=== PATIENT | male | born 1965 | race Asian ===

== ENCOUNTER 2020-05-17 08:56 | Outpatient (REF) | payer OTHER, SELFPAY ==
[2020-05-17 14:24] LABS: Urine Cytology See Pathology rpt
== END 2020-05-17 08:57 | disposition home or self-care (01) ==
LOC: CF 08:56
PROVIDERS: PCP Internal Medicine Endocrinology, Diabetes & Metabolism; Visit Provider Urology
DX: C67.9 Malignant neoplasm of bladder, unspecified (principal)
CPT/HCPCS: 52000; 81002; 88112; 99212

== ENCOUNTER → 2020-12-20 08:48 | Outpatient (BNVA) | payer OTHER, SELFPAY | PROVIDERS: PCP Internal Medicine Endocrinology, Diabetes & Metabolism; Visit Provider Urology | DX: C67.9 Malignant neoplasm of bladder, unspecified (principal) | CPT/HCPCS: 52000; 99212 ==

== ENCOUNTER 2021-12-19 08:54 | Outpatient (REF) | payer OTHER, SELFPAY ==
[2021-12-19 16:34] LABS: Urine Cytology See Pathology rpt
== END 2021-12-19 08:55 | disposition home or self-care (01) ==
LOC: HO.LAB 08:54
PROVIDERS: Visit Provider Urology
DX: C67.9 Malignant neoplasm of bladder, unspecified (principal)
CPT/HCPCS: 52000; 88112; 99212

== ENCOUNTER 2023-01-08 09:24 | Outpatient (AMB) | payer OTHER, SELFPAY ==
--- NOTE | 2023-01-08 09:28 | MHC.OFFVIS ---
Intake Intake Visit Reasons: Cysto Intake Note: Patient presents today for a CYSTOSCOPY Procedure: Meds: None Allergies to Antibiotic: clindamyacin Blood Thinner: None Urinalysis test clear for Cysto? yes Disposable Uro-G Cystoscope Cannula: Lot: [id number] Exp: 08/30/2024 Allergies clindamycin [CLINDAMYCIN] Adverse Reaction (Intermediate, Verified 12/18/21 15:19) NAUSEA & VOMITING Clindamycin HCl Allergy (Unknown, Uncoded 12/18/21 15:19) Unknown HPI HPI Comments History of Present Illness Details Arie is a very pleasant male. He is a patient of Dr Cavazos. He is seen for the following urologic conditions. 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 Recurrence Risk per EORTC Low Risk. Bladder cancer risk factors Organic Solvent exposure No smoking Yes hair dye exposure No use of pioglitazone No chronic cystitis No prior chemotherapy with cyclophosphamide No family history of bladder cancer No pelvic radiation No Prior Cystoscopy 07/03 - small slowly healing area on left base 10/03 - area healed - has mild median lobe 01/03 - NAD - median lobe growing 04/04 NAD - median lobe prominent 07/04 - small lesion 11/03 NAD 05/07 NAD. 05/08 NAD - 05/09 Small red area right lower wall, 01/07 NAD with TURP def, 12/09 NAD Prior Cytology 03/04 Cells consistent with malignancy - 07/03 - NAD, 12/03 - NAD, 12/04 - NAD 05/08 FISH NAD, 06/[address] scan with contrast 03/04 - NAD. Planned treatment surveillance protocol [facility] Medical History (Updated 12/19/21 @ 09:30 by Az Rascon MD) Bipolar disorder Weak urinary stream Benign prostatic hyperplasia without lower urinary tract symptoms Urinary bladder cancer Surgical History (Updated 12/18/21 @ 15:21 by TERRENCE Euceda) History of surgery Social History (Updated 12/18/21 @ 15:21 by TERRENCE Euceda) Patient Tobacco Use Status: Former Tobacco user Review of Systems Const Denies chills and Denies fever(s) Card Reports no additional complaints and Denies syncope Resp Denies cough GI Denies abdominal pain and Denies heartburn Reports as per HPI and Denies change in libido Neuro Denies syncope Psych Denies change in libido Endo Denies change in libido Physical Exam Const General: cooperative, healthy appearing, comfortable and no acute distress Orientation/consciousness: patient oriented x3 HEENT Face and sinus: Yes normal facial exam Mouth: moist mucous membranes Neck Neck: Yes normal visual inspection, Yes full ROM and Yes trachea midline Chest Chest palpation & inspection: normal inspection of the chest Resp Effort & Inspection: normal respiratory effort, able to speak in complete sentences and no respiratory distress GI Inspection: Yes normal to inspection Back/Spine/Pelvis Cervical Spine: normal cervical lordosis Thoracic/Lumbar Spine: thoracic and lumbar spine normal to inspection Skin General skin exam: no rashes or lesions noted Neuro General: patient oriented x3, gait normal, tone normal and moves all extremities Extrem General: Yes normal to inspection and Yes capillary refill normal Office Procedures Cystoscopy Consent Discussed risk and benefit or proposed procedure with the patient. Information consent for procedure given to the patient. Discussed technical aspects, risks, benefits and alternatives in full. Addressed all of the patient's questions and concerns regarding the procedure. The patient demonstrated knowledge and understanding. They wish to proceed with this procedure. Preparation The patient was prepped in the usual manner. A brim plater was present and in the room. Genitalia was prepped with betadine solution in a sterile manner. Lidocaine Jelly 2% was placed into the urethra and 16Fr flexible Olympus cystoscope was inserted into the meatus after adequate lubrication. Procedure Meatus circumcised Urethra anterior posterior urethra normal Prostatic Urethra prior TURP defect Bladder examination with retroflexion of cystoscope Bladder Orifices normal shape and position Bladder Capacity medium Trabeculations - Cellule Formation - Diverticulum Formation - Mucosal Erythema - Bladder Tumor - [id number] DISPOSABLE SCOPE URO-G FLEXIBLE SCOPE Procedure code (CPT) selection complete Office Meds lidocaine HCl 2 % mucosal jelly in applicator Performing Provider: Az Rascon MD Performing Location: [facility] [place] [facility] Administered by: Alejandrina Lizarraga RN on 01/08/23 09:37 Dose Route Admin Location Dispensed Lot Number Expiration Date [facility] Transistor Tester 10 mL intra-urethral 10 mL nitrofurantoin monohydrate/macrocrystals 100 mg capsule Performing Provider: Az Rascon MD Performing Location: [facility] [place] [facility] Administered by: Alejandrina Lizarraga RN on 01/08/23 09:37 Dose Route Admin Location Dispensed Lot Number Expiration Date NDC Transistor Tester 100 mg PO 1 cap naproxen 500 mg tablet Performing Provider: Az Rascon MD Performing Location: [facility] [place] [facility] Administered by: Alejandrina Lizarraga RN on 01/08/23 09:37 Dose Route Admin Location Dispensed Lot Number Expiration Date NDC Transistor Tester 500 mg PO 1 tab Results AMB Urinalysis, Automated UA Leukoctes 0 Genny/uL Last Edit by Radha Cunha Haydee on 01/08/23 09:34 UA Nitrite Negative Last Edit by Radha Cunha [facility] on 01/08/23 09:34 UA Urobilinogen 0.2 mg/dL Last Edit by Radha Cunha [facility] on 01/08/23 09:34 UA Protein 15 mg/dL Last Edit by Radha Cunha [facility] on 01/08/23 09:34 UA pH 7.0 Last Edit by Radha Cunha Haydee on 01/08/23 09:34 UA Blood 0 Javier/uL Last Edit by Radha Cunha [facility] on 01/08/23 09:34 UA Specific [place] 1.015 Last Edit by TERRENCE Nix on 01/08/23 09:34 UA Ketone Negative Last Edit by Radha Cunha [facility] on 01/08/23 09:34 UA Bilirubin 0 mg/dL Last Edit by Radha Cunha [facility] on 01/08/23 09:34 UA Glucose 0 mg/dL Last Edit by Radha Cunha [facility] on 01/08/23 09:34 Results Reviewed Results Reviewed: Laboratory Last Values Urine pH (Auto) 7.0 01/08/23 09:33 Specific [place] (Auto) 1.015 01/08/23 09:33 Urine Protein (Auto) 15 mg/dL 01/08/23 09:33 Glucose (UA)(Auto) 0 mg/dL 01/08/23 09:33 Urine Ketones (Auto) Negative 01/08/23 09:33 Urine Blood (Auto) 0 Javier/uL 01/08/23 09:33 Urine Nitrite (Auto) Negative 01/08/23 09:33 Urine Bilirubin (Auto) 0 mg/dL 01/08/23 09:33 Urine Urobilinogen (Auto) 0.2 mg/dL 01/08/23 09:33 Leukocyte Esterase (Auto) 0 Genny/uL 01/08/23 09:33 Assessment & Plan Assessment & Plan (1) Bladder cancer: Comment: 2016 TA low-grade, 2018 cystitis cystica with TUIP Code(s): C67.9 - Malignant neoplasm of bladder, unspecified Plan 2 year follow-up repeat cystoscopy Orders: Orders AMB Urinalysis Automated Today Z13.9 - Encounter for screening, unspecified AMB Cystoscopy Today C67.9 - Malignant neoplasm of bladder, unspecified Patient Instructions: Imaging studies, laboratory and physical exam results were discussed and reviewed in detail. No major barriers to patient understanding were identified. An opportunity to ask questions regarding the treatment plan was provided. All questions were answered. The patient expressed understanding and agreement with the above treatment plan. The patient is aware they should contact our office by phone for worsening of their current condition or the appearance of new urologic symptoms. Compliance is encouraged with any medications and followup testing that is ordered. It is a privilege to participate in the urologic care of your patient. If you have any questions or concerns regarding treatment for the above conditions, or other urologic issues, please do not hesitate to contact me. The office telephone contact is [phone]. This note is constructed using voice recognition software. While every effort has been made to ensure accuracy pumping station supervisor errors may have been included. Yours sincerely, Dr Az Rascon MD, [facility] - Urology Providers of Expert, Compassionate Care for the Genitourinary System Coding Level of Care Code Est Pt Level 4 (61959) Diagnoses Bladder cancer C67.9 CPT Codes Cystoscopy - CPT: 51811-[id number] ([id number])
== END 2023-01-08 10:05 | disposition home or self-care (01) ==
LOC: HO.HUSH 09:24
PROVIDERS: PCP Internal Medicine Endocrinology, Diabetes & Metabolism; Visit Provider Urology
DX: C67.9 Malignant neoplasm of bladder, unspecified (principal); Z13.9 Encounter for screening, unspecified
CPT/HCPCS: 52000; 99214

== ENCOUNTER → 2023-01-08 09:24 | Outpatient (BNVA) | payer OTHER, SELFPAY | PROVIDERS: PCP Internal Medicine Endocrinology, Diabetes & Metabolism; Visit Provider Urology | DX: C67.9 Malignant neoplasm of bladder, unspecified (principal) | CPT/HCPCS: 52000; 81003; 99212 ==

== ENCOUNTER 2025-01-09 09:16 | Outpatient (AMB) | payer OTHER, SELFPAY ==
--- NOTE | 2025-01-09 09:27 | MHC.OFFVIS ---
Intake Visit Reasons: cysto Intake Note: Patient presents today for a CYSTOSCOPY Procedure: Meds: None Allergies to Antibiotic: clindamyacin Blood Thinner: None Uro-G Cystoscope Cannula: Lot: Exp: Lead Burner Apprentice Required: No Accompanied by: Self / Same As Patient Allergies clindamycin (CLINDAMYCIN) Adverse Reaction (Intermediate, Verified 01/09/25 09:27) NAUSEA & VOMITING Clindamycin HCl Allergy (Unknown, Uncoded 12/18/21 15:19) Unknown HPI Comments Details: Arie is a very pleasant male. He is a patient of Dr Cavazos. He is seen for the following urologic conditions. - bladder cancer Here for 2 year follow-up check cysto NAD 2 year follow-up Bladder Cancer: Known base of low-grade 2016, repeat TURBT in 2018 with cystitis cystica Surveillance protocol Bladder cancer was initially diagnosed during evaluation for gross hematuria 03/2016. 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 Recurrence Risk per EORTC Low Risk. Bladder cancer risk factors Organic Solvent exposure No smoking Yes hair dye exposure No use of pioglitazone No chronic cystitis No prior chemotherapy with cyclophosphamide No family history of bladder cancer No pelvic radiation No Prior Cystoscopy 07/03 - small slowly healing area on left base 10/03 - area healed - has mild median lobe 01/03 - NAD - median lobe growing 04/04 NAD - median lobe prominent 07/04 - small lesion 11/03 NAD 05/07 NAD. 05/08 NAD - 05/09 Small red area right lower wall, 01/07 NAD with TURP def, 12/09 NAD Prior Cytology 03/04 Cells consistent with malignancy - 07/03 - NAD, 12/03 - NAD, 12/04 - NAD 05/08 FISH NAD, 06/[address] scan with contrast 03/04 - NAD. Planned treatment surveillance protocol [facility] Medical History (Updated 12/19/21 @ 09:30 by Az Rascon MD) Bipolar disorder Weak urinary stream Benign prostatic hyperplasia without lower urinary tract symptoms Urinary bladder cancer Surgical History (Updated 12/18/21 @ 15:21 by TERRENCE Euceda) History of surgery Social History (Updated 12/18/21 @ 15:21 by TERRENCE Euceda) Patient Tobacco Use Status: Former Tobacco user Review of Systems Const Denies chills and Denies fever(s) Card Reports no additional complaints and Denies syncope Resp Denies cough GI Denies abdominal pain and Denies heartburn Reports as per HPI and Denies change in libido Neuro Denies syncope Psych Denies change in libido Endo Denies change in libido Physical Exam Const General: cooperative, healthy appearing, comfortable and no acute distress Orientation/consciousness: patient oriented x3 HEENT Face and sinus: Yes normal facial exam Mouth: moist mucous membranes Neck Neck: Yes normal visual inspection, Yes full ROM and Yes trachea midline Chest Chest palpation & inspection: normal inspection of the chest Resp Effort & Inspection: normal respiratory effort, able to speak in complete sentences and no respiratory distress GI Inspection: Yes normal to inspection Back/Spine/Pelvis Cervical Spine: normal cervical lordosis Thoracic/Lumbar Spine: thoracic and lumbar spine normal to inspection Skin General skin exam: no rashes or lesions noted Neuro General: patient oriented x3, gait normal, tone normal and moves all extremities Extrem General: Yes normal to inspection and Yes capillary refill normal Office Procedures Cystoscopy Consent Discussed risk and benefit or proposed procedure with the patient. Information consent for procedure given to the patient. Discussed technical aspects, risks, benefits and alternatives in full. Addressed all of the patient's questions and concerns regarding the procedure. The patient demonstrated knowledge and understanding. They wish to proceed with this procedure. Preparation The patient was prepped in the usual manner. A card cutter was present and in the room. Genitalia was prepped with betadine solution in a sterile manner. Lidocaine Jelly 2% was placed into the urethra and 16Fr flexible Olympus cystoscope was inserted into the meatus after adequate lubrication. Procedure Cystoscopy performed using a disposable Urovue digital 16 Polish cystoscope. Meatus circumcised Urethra anterior and posterior urethra normal Prostatic Urethra TURP defect Bladder examination with retroflexion of cystoscope Bladder Orifices normal shape and position Bladder Capacity Normal Trabeculations grade 1 Cellule Formation None Diverticulum Formation None Mucosal Erythema None Bladder Tumor None [id number] DISPOSABLE SCOPE URO-G FLEXIBLE SCOPE Procedure code (CPT) selection complete Office Meds lidocaine HCl 2 % mucosal jelly in applicator Performing Provider: Az Rascon MD Performing Location: [facility] [place] [facility] Administered by: María Turcios RN on 01/09/25 09:36 Dose Route Admin Location Dispensed Lot Number Expiration Date NDC Labor Law Professor 10 mL intra-urethral 10 mL nitrofurantoin monohydrate/macrocrystals 100 mg capsule Performing Provider: Az Rascon MD Performing Location: [facility] [place] [facility] Administered by: María Turcios RN on 01/09/25 09:36 Dose Route Admin Location Dispensed Lot Number Expiration Date NDC Labor Law Professor 100 mg PO 1 cap Assessment & Plan Assessment & Plan (1) Bladder cancer: Comment: 2016 TA low-grade, 2018 cystitis cystica with TUIP Code(s): C67.9 - Malignant neoplasm of bladder, unspecified Category: Medical Plan 2 year follow-up cysto Orders: Orders AMB Cystoscopy Today C67.9 - Malignant neoplasm of bladder, unspecified Patient Instructions: This note is constructed using voice recognition software. While every effort has been made to ensure accuracy fish and wildlife biologist errors may have been included. Imaging studies, laboratory and physical exam results were discussed and reviewed in detail. No major barriers to patient understanding were identified. An opportunity to ask questions regarding the treatment plan was provided. All questions were answered. The patient expressed understanding and agreement with the above treatment plan. The patient is aware they should contact our office by phone for worsening of their current condition or the appearance of new urologic symptoms. Compliance is encouraged with any medications and followup testing that is ordered. It is a privilege to participate in the urologic care of your patient. If you have any questions or concerns regarding treatment for the above conditions, or other urologic issues, please do not hesitate to contact me. The office telephone contact is [phone]. Sincerely, Dr Az Rascon MD, [facility] - Urology Compassionate Specialist Care for the Genitourinary System Coding Level of Care Code Est Pt Level 4 (03293) Complex EM visit Add On G2211 Diagnoses Bladder cancer C67.9 CPT Codes Cystoscopy - CPT: 67540-[id number] ([id number])
== END 2025-01-09 09:58 | disposition home or self-care (01) ==
LOC: HO.HUSH 09:16
PROVIDERS: PCP Internal Medicine Endocrinology, Diabetes & Metabolism; Visit Provider Urology
DX: C67.9 Malignant neoplasm of bladder, unspecified (principal); Z13.9 Encounter for screening, unspecified
CPT/HCPCS: 52000; 99213

== ENCOUNTER 2025-01-09 09:16 | Outpatient (REF) | payer OTHER, SELFPAY | END 2025-01-09 09:17 | disposition home or self-care (01) | LOC: HO.LNP 09:16 | PROVIDERS: PCP Internal Medicine Endocrinology, Diabetes & Metabolism; Visit Provider Urology | DX: C67.9 Malignant neoplasm of bladder, unspecified (principal); Z13.89 Encounter for screening for other disorder | CPT/HCPCS: 52000; 81003; 88121; 99212 ==